=== PATIENT | female | born 1990 | race Caucasian/White ===

== ENCOUNTER → 2017-03-18 | Outpatient (CLI) | payer OTHER ==
--- NOTE | 2017-03-18 11:26 | KCIC ---
COMPLETE ABDOMINAL ULTRASOUND Clinical History: Abdominal pain. Comparison: None. Technique: Sonographic examination of the abdomen was performed and multiple grayscale and color Doppler static images were obtained. Findings: The majority of the liver is visualized and is homogeneous. The liver measures 16.5 cm. Ultrasound is not sensitive for detecting solid liver lesions. Portal flow is hepatopetal. The common bile duct is normal in caliber, measuring 5 mm in diameter. The gallbladder wall is normal. Per report, sonographic Ferreira sign is negative. There is no cholelithiasis or pericholecystic fluid. The pancreas appears within normal limits. The right kidney is normal in echotexture and measures 11.5 cm. The left kidney is normal in echotexture and measures 10.6 cm. Corticomedullary differentiation is preserved. There is no hydronephrosis. The spleen is not enlarged, measuring 10.7 cm. Calcified granulomas are seen in the spleen. Visualized portions of the abdominal aorta and IVC are normal. IMPRESSION: There is no acute abdominal abnormality identified sonographically. Electronically signed by: Blake Fountain MD (03/18/2017 11:23 AM)
== END | disposition home or self-care (01) ==
LOC: KCIC US 08:00
PROVIDERS: ATTEND Family Medicine
DX: R10.9 Unspecified abdominal pain (principal)
CPT/HCPCS: 76700

== ENCOUNTER → 2017-03-23 | Outpatient (CLI) | payer OTHER ==
[~2017-03-23] VITALS: Ht 160 cm; Wt 70.3 kg
[~2017-03-23] MED LIST: SINCALIDE 1.41 MCG in IV NORMAL SALINE 50ML 30 ML IV ONE
--- NOTE | 2017-03-23 12:25 | RAD ---
Hepatobiliary scan with gallbladder ejection fraction calculation 03/23/2017 Clinical History: Bloating with nausea for 3.5 weeks. Technique: After the intravenous administration of 5.0 mCi of Technetium 99m Choletec, imaging of the right upper quadrant of the abdomen was performed using the gamma camera for 60 minutes. 1.41 mcg of CCK was then infused intravenously over 30 minutes. Continued imaging of the right upper quadrant abdomen was performed. A gallbladder ejection fraction was calculated. Findings: Normal uptake and excretion of the radionuclide by the liver is seen. There is no evidence of cystic or common bile duct obstruction. The gallbladder is within normal limits in size and configuration. During the infusion CCK normal emptying of the gallbladder is seen. The gallbladder ejection fraction is 86.8 % which is within normal limits. Impression: Negative study.
== END | disposition home or self-care (01) ==
LOC: NM 08:16
PROVIDERS: ATTEND Family Medicine
DX: R10.10 Upper abdominal pain, unspecified (principal); R14.0 Abdominal distension (gaseous); R11.0 Nausea; Z88.5 Allergy status to narcotic agent
CPT/HCPCS: 78226; 96374; 96375; A9537; J2805